=== PATIENT | female | born 1985 | race Caucasian/White ===

== ENCOUNTER 2020-11-13 17:54 | Inpatient (IN) | payer MEDICAID ==
[~2020-11-13] VITALS: Ht 160 cm; Wt 88.0 kg
[2020-11-14] MEDS ORDERED: ACETAMINOPHEN 325 MG TABLET PO PRN (18:45)
[2020-11-14 18:59] VITALS: BP 141/91
[2020-11-14] MEDS ORDERED: MINERAL OIL 133 ML ENEMA PR PRN (19:00)
[2020-11-14] MEDS ORDERED: ONDANSETRON HCL 4 MG TABLET PO PRN (19:00)
[2020-11-14] MEDS ORDERED: OxyCODONE HCL/ACETAMINOPHEN 5-325 MG TABLET PO PRN (19:00)
[2020-11-14] MEDS ORDERED: BISACODYL 10 MG RECTAL RECTAL SUPPOSITORY PR PRN (19:00)
[2020-11-14 21:20] VITALS: BP 151/95
[2020-11-14] MEDS: METOPROLOL TARTRATE 50 MG TABLET PO SCH (21:25)
[2020-11-14] MEDS: SENNA 187 MG TABLET PO SCH (21:25)
[2020-11-14] MEDS: DOCUSATE SODIUM 100 MG CAPSULE PO SCH (21:25)
[2020-11-14] MEDS: APIXABAN 5 MG TABLET PO SCH (21:25)
[2020-11-14] MEDS: VENLAFAXINE HCL 37.5 MG TABLET PO SCH (21:26)
[2020-11-14] MEDS: ATORVASTATIN CALCIUM 40 MG TABLET PO SCH (21:26)
[2020-11-14 23:10] VITALS: BP 150/91
[2020-11-14] MEDS: CloNIDine HCL 0.1 MG TABLET PO SCH (23:13)
[2020-11-14] MEDS: HydrALAZINE HCL 50 MG TABLET PO SCH (23:13)
[2020-11-15] VITALS (13 sets, daily range): BP systolic 103–136; BP diastolic 57–87
[2020-11-15] MEDS: CloNIDine HCL 0.1 MG TABLET PO SCH ×4 (08:00→23:27)
[2020-11-15] MEDS: ASPIRIN 81 MG CHEWABLE TABLET PO SCH (08:07)
[2020-11-15] MEDS: AmLODIPine BESYLATE 10 MG TABLET PO SCH (08:07)
[2020-11-15] MEDS: DOCUSATE SODIUM 100 MG CAPSULE PO SCH ×2 (08:08→21:49)
[2020-11-15] MEDS: APIXABAN 5 MG TABLET PO SCH ×2 (08:08→21:46)
[2020-11-15] MEDS: HydrALAZINE HCL 50 MG TABLET PO SCH ×4 (08:10→23:27)
[2020-11-15] MEDS: VENLAFAXINE HCL 37.5 MG TABLET PO SCH ×2 (08:10→21:47)
[2020-11-15] MEDS: METOPROLOL TARTRATE 50 MG TABLET PO SCH ×2 (08:10→21:47)
[2020-11-15 14:11] LABS: BASOPHILS % (AUTO) 0.6 % (0.0-2.0); EOSINOPHILS % (AUTO) 0.9 % (1.0-6.0); HEMATOCRIT 21.2 % (36-46); LYMPHOCYTES # (AUTO) 1.7 K/uL (1.0-4.8); MEAN CORPUSCULAR HEMOGLOBIN 23.4 pg (26.0-34.0); MEAN CORPUSCULAR HGB CONC 31.3 G/dL (31.0-37.0); MEAN CORPUSCULAR VOLUME 75 fL (80-100); MONOCYTES # (AUTO) 0.6 K/uL (0.1-1.0); MONOCYTES % (AUTO) 7.4 % (2.0-9.0); NEUTROPHILS # (AUTO) 5.3 K/uL (1.8-7.7); NEUTROPHILS % (AUTO) 69.1 % (40.0-70.0); PLATELET COUNT (AUTO) 408 K/uL (150-450); RED BLOOD CELL COUNT(AUTO) 2.84 MIL/uL (4.00-5.20); RED CELL DISTRIBUTION WIDTH 18.1 % (11.5-14.5)
[2020-11-15 14:15] LABS: HEMOGLOBIN 6.6 g/dL (12.0-16.0)
[2020-11-15 14:24] LABS: BILIRUBIN,TOTAL 0.7 mg/dL (0.1-1.0); CALCIUM, TOTAL 8.7 mg/dL (8.8-10.5); CREATININE 1.08 mg/dL (0.60-1.30); POTASSIUM 4.7 mmol/L (3.5-5.1); TOTAL PROTEIN, SERUM 6.1 g/dL (6.4-8.2)
[2020-11-15] MEDS ORDERED: SODIUM CHLORIDE 0.9% 100 ML ONE (17:54)
[2020-11-15] MEDS: SENNA 187 MG TABLET PO SCH (21:46)
[2020-11-15] MEDS: ATORVASTATIN CALCIUM 40 MG TABLET PO SCH (21:47)
[2020-11-15] MEDS: 0.9% SODIUM CHLORIDE 10 ML SYRINGE IVP SCH (23:27)
[2020-11-16 00:11] VITALS: BP 133/88
[2020-11-16] MEDS: ONDANSETRON HCL 4 MG TABLET PO SCH (06:08)
[2020-11-16] MEDS: HydrALAZINE HCL 50 MG TABLET PO SCH ×4 (08:00→23:34)
[2020-11-16 08:10] VITALS: BP 129/93
[2020-11-16] MEDS: 0.9% SODIUM CHLORIDE 10 ML SYRINGE IVP SCH ×3 (08:24→23:34)
[2020-11-16] MEDS: ASPIRIN 81 MG CHEWABLE TABLET PO SCH (08:25)
[2020-11-16] MEDS: VENLAFAXINE HCL 37.5 MG TABLET PO SCH ×2 (08:26→20:43)
[2020-11-16] MEDS: DOCUSATE SODIUM 100 MG CAPSULE PO SCH ×2 (08:26→20:43)
[2020-11-16] MEDS: APIXABAN 5 MG TABLET PO SCH ×2 (08:26→20:43)
[2020-11-16] MEDS: AmLODIPine BESYLATE 10 MG TABLET PO SCH (08:36)
[2020-11-16] MEDS: CloNIDine HCL 0.1 MG TABLET PO SCH ×3 (08:36→23:34)
[2020-11-16 08:48] LABS: HEMATOCRIT 25.1 % (36-46); HEMOGLOBIN 8.2 g/dL (12.0-16.0)
[2020-11-16] MEDS: METOPROLOL TARTRATE 50 MG TABLET PO SCH ×2 (09:00→20:43)
[2020-11-16 10:10] VITALS: BP 102/60
[2020-11-16 15:18] LABS: APPEARANCE,URINE CLOUDY (CLEAR); BILIRUBIN,URINE NEGATIVE (NEGATIVE); GLUCOSE, URINE (UA) NEGATIVE (NEGATIVE); KETONES,URINE NEGATIVE (NEGATIVE); LEUKOCYTE ESTERASE ,URINE NEGATIVE (NEGATIVE); NITRATE,URINE NEGATIVE (NEGATIVE); OCCULT BLOOD,URINE NEGATIVE (NEGATIVE); PROTEIN,URINE NEGATIVE (NEGATIVE); UROBILINOGEN,URINE 0.2 mg/dL (<=1.0)
[2020-11-16 16:11] LABS: BACTERIA,URINE Many /HPF (None Seen); RBC,URINE None Seen /HPF (0-2); SQUAMOUS EPITHELIAL CELL,UR Few /LPF (None Seen)
[2020-11-16 16:20] VITALS: BP 113/73
[2020-11-16 18:10] VITALS: BP 116/77
[2020-11-16 20:30] VITALS: BP 117/72
[2020-11-16] MEDS: SENNA 187 MG TABLET PO SCH (20:43)
[2020-11-16] MEDS: ATORVASTATIN CALCIUM 40 MG TABLET PO SCH (20:43)
[2020-11-16] MEDS: COLD CREAM, SKIN EMOLLIENT 170 GM JAR TP SCH (20:44)
[2020-11-16] MEDS ORDERED: MAGNESIUM HYDROXIDE SUSPENSION 30 ML UDCUP PO PRN (21:15)
[2020-11-17 00:09] VITALS: BP 114/81
[2020-11-17] MEDS: ONDANSETRON HCL 4 MG TABLET PO SCH (05:49)
[2020-11-17] MEDS: MAGNESIUM HYDROXIDE SUSPENSION 30 ML UDCUP PO PRN (05:49)
[2020-11-17] MEDS: DOCUSATE SODIUM 283 MG/5 ML MINI-ENEMA PR SCH (05:49)
[2020-11-17 07:23] VITALS: BP 116/76
[2020-11-17] MEDS: 0.9% SODIUM CHLORIDE 10 ML SYRINGE IVP SCH ×3 (07:41→23:22)
[2020-11-17] MEDS: APIXABAN 5 MG TABLET PO SCH ×2 (07:42→20:39)
[2020-11-17] MEDS: ASPIRIN 81 MG CHEWABLE TABLET PO SCH (07:42)
[2020-11-17] MEDS: HydrALAZINE HCL 50 MG TABLET PO SCH ×3 (07:42→23:21)
[2020-11-17] MEDS: CloNIDine HCL 0.1 MG TABLET PO SCH ×3 (07:43→23:21)
[2020-11-17] MEDS: AmLODIPine BESYLATE 10 MG TABLET PO SCH (07:43)
[2020-11-17] MEDS: VENLAFAXINE HCL 37.5 MG TABLET PO SCH ×2 (07:43→20:39)
[2020-11-17] MEDS: DOCUSATE SODIUM 100 MG CAPSULE PO SCH ×2 (07:43→20:39)
[2020-11-17] MEDS: METOPROLOL TARTRATE 50 MG TABLET PO SCH ×2 (08:00→20:40)
[2020-11-17 09:22] VITALS: BP 99/67
[2020-11-17] MEDS: FERROUS GLUCONATE 324 MG TABLET PO SCH ×2 (09:29→16:27)
[2020-11-17 10:34] LABS: % IRON SATURATION 4.7 % (22-44)
[2020-11-17 16:23] VITALS: BP 129/86
[2020-11-17 20:00] VITALS: BP 102/60
[2020-11-17] MEDS: ATORVASTATIN CALCIUM 40 MG TABLET PO SCH (20:39)
[2020-11-17] MEDS: SENNA 187 MG TABLET PO SCH (20:39)
[2020-11-17] MEDS: COLD CREAM, SKIN EMOLLIENT 170 GM JAR TP SCH (21:11)
[2020-11-17 23:35] VITALS: BP 149/79
[2020-11-18] MEDS: ONDANSETRON HCL 4 MG TABLET PO SCH (05:39)
[2020-11-18] MEDS: DOCUSATE SODIUM 283 MG/5 ML MINI-ENEMA PR SCH (05:39)
[2020-11-18 08:05] VITALS: BP 135/74
[2020-11-18] MEDS: DOCUSATE SODIUM 100 MG CAPSULE PO SCH ×2 (08:16→20:31)
[2020-11-18] MEDS: AmLODIPine BESYLATE 10 MG TABLET PO SCH (08:16)
[2020-11-18] MEDS: CloNIDine HCL 0.1 MG TABLET PO SCH ×2 (08:16→15:57)
[2020-11-18] MEDS: FERROUS GLUCONATE 324 MG TABLET PO SCH (08:16)
[2020-11-18] MEDS: ASPIRIN 81 MG CHEWABLE TABLET PO SCH (08:16)
[2020-11-18] MEDS: APIXABAN 5 MG TABLET PO SCH ×2 (08:16→20:31)
[2020-11-18] MEDS: VENLAFAXINE HCL 37.5 MG TABLET PO SCH ×2 (08:17→20:37)
[2020-11-18] MEDS: 0.9% SODIUM CHLORIDE 10 ML SYRINGE IVP SCH ×3 (08:17→23:08)
[2020-11-18] MEDS: HydrALAZINE HCL 50 MG TABLET PO SCH ×2 (08:17→15:57)
[2020-11-18] MEDS: METOPROLOL TARTRATE 50 MG TABLET PO SCH ×2 (08:17→20:31)
[2020-11-18] MEDS: EPOETIN ALFA 10,000 UNITS/ML VIAL SQ SCH (10:21)
[2020-11-18] MEDS ORDERED: SOD FERRIC GLUC COMPLX/SUCROSE 125 MG in SODIUM CHLORIDE 0.9% 100 ML IV SCH (12:15)
[2020-11-18] MEDS ORDERED: SODIUM CHLORIDE 0.9% 100 ML ONE (13:23)
[2020-11-18 15:46] VITALS: BP 124/79
[2020-11-18 20:29] VITALS: BP 113/70
[2020-11-18] MEDS: ATORVASTATIN CALCIUM 40 MG TABLET PO SCH (20:30)
[2020-11-18] MEDS: SENNA 187 MG TABLET PO SCH (20:31)
[2020-11-18] MEDS: COLD CREAM, SKIN EMOLLIENT 170 GM JAR TP SCH (20:31)
[2020-11-19] VITALS: BP 121/68
[2020-11-19] MEDS: CloNIDine HCL 0.1 MG TABLET PO SCH ×4 (00:03→23:13)
[2020-11-19] MEDS: HydrALAZINE HCL 50 MG TABLET PO SCH ×4 (00:03→23:13)
[2020-11-19] MEDS: DOCUSATE SODIUM 283 MG/5 ML MINI-ENEMA PR SCH (04:58)
[2020-11-19] MEDS: ONDANSETRON HCL 4 MG TABLET PO SCH (05:51)
[2020-11-19 06:39] LABS: ANION GAP 10 mmol/L (8-16); CARBON DIOXIDE 26 mmol/L (22-29); CHLORIDE 102 mmol/L (98-107); CREATININE 0.95 mg/dL (0.60-1.30); GLOMERULAR FILTR. RATE CALC > 60 mL/min (>60); GLUCOSE,RANDOM 102 mg/dL (70-110); POTASSIUM 3.8 mmol/L (3.5-5.1); SODIUM SERUM 138 mmol/L (136-145); UREA NITROGEN, BLOOD 12 mg/dL (7-18)
[2020-11-19] MEDS: 0.9% SODIUM CHLORIDE 10 ML SYRINGE IVP SCH ×3 (08:17→23:03)
[2020-11-19] MEDS: DOCUSATE SODIUM 100 MG CAPSULE PO SCH ×2 (08:18→20:32)
[2020-11-19] MEDS: ASPIRIN 81 MG CHEWABLE TABLET PO SCH (08:18)
[2020-11-19] MEDS: AmLODIPine BESYLATE 10 MG TABLET PO SCH (08:18)
[2020-11-19] MEDS: METOPROLOL TARTRATE 50 MG TABLET PO SCH ×2 (08:18→20:32)
[2020-11-19] MEDS: APIXABAN 5 MG TABLET PO SCH ×2 (08:18→20:32)
[2020-11-19] MEDS: VENLAFAXINE HCL 37.5 MG TABLET PO SCH ×2 (08:19→20:32)
[2020-11-19 09:48] VITALS: BP 123/69
[2020-11-19] MEDS: CIPROFLOXACIN HCL 500 MG TABLET PO SCH ×2 (15:45→20:32)
[2020-11-19] MEDS: SOD FERRIC GLUC COMPLX/SUCROSE 125 MG in SODIUM CHLORIDE 0.9% 100 ML IV SCH (17:02)
[2020-11-19 19:17] VITALS: BP 123/60
[2020-11-19] MEDS: SENNA 187 MG TABLET PO SCH (20:32)
[2020-11-19] MEDS: ATORVASTATIN CALCIUM 40 MG TABLET PO SCH (20:32)
[2020-11-19] MEDS: COLD CREAM, SKIN EMOLLIENT 170 GM JAR TP SCH (20:33)
[2020-11-20] VITALS: BP 126/76
[2020-11-20] MEDS: DOCUSATE SODIUM 283 MG/5 ML MINI-ENEMA PR SCH (05:14)
[2020-11-20] MEDS: ONDANSETRON HCL 4 MG TABLET PO SCH (05:24)
[2020-11-20 07:30] VITALS: BP 118/73
[2020-11-20] MEDS: 0.9% SODIUM CHLORIDE 10 ML SYRINGE IVP SCH ×3 (07:39→23:13)
[2020-11-20] MEDS: CloNIDine HCL 0.1 MG TABLET PO SCH ×4 (07:40→23:13)
[2020-11-20] MEDS: APIXABAN 5 MG TABLET PO SCH ×2 (07:40→21:12)
[2020-11-20] MEDS: ASPIRIN 81 MG CHEWABLE TABLET PO SCH (07:40)
[2020-11-20] MEDS: DOCUSATE SODIUM 100 MG CAPSULE PO SCH ×2 (07:40→21:12)
[2020-11-20] MEDS: HydrALAZINE HCL 50 MG TABLET PO SCH ×3 (07:40→23:13)
[2020-11-20] MEDS: VENLAFAXINE HCL 37.5 MG TABLET PO SCH ×2 (07:41→21:12)
[2020-11-20] MEDS: AmLODIPine BESYLATE 10 MG TABLET PO SCH (07:41)
[2020-11-20] MEDS: CIPROFLOXACIN HCL 500 MG TABLET PO SCH ×2 (07:41→21:13)
[2020-11-20] MEDS: MODAFINIL 100 MG TABLET PO SCH (07:41)
[2020-11-20] MEDS: EPOETIN ALFA 10,000 UNITS/ML VIAL SQ SCH (07:42)
[2020-11-20 09:40] VITALS: BP 110/63
[2020-11-20] MEDS: METOPROLOL TARTRATE 50 MG TABLET PO SCH ×2 (09:47→21:12)
[2020-11-20] MEDS: SOD FERRIC GLUC COMPLX/SUCROSE 125 MG in SODIUM CHLORIDE 0.9% 100 ML IV SCH (16:00)
[2020-11-20 16:33] VITALS: BP 126/79
[2020-11-20 21:00] VITALS: BP 133/95
[2020-11-20] MEDS: SENNA 187 MG TABLET PO SCH (21:12)
[2020-11-20] MEDS: ATORVASTATIN CALCIUM 40 MG TABLET PO SCH (21:12)
[2020-11-20] MEDS: COLD CREAM, SKIN EMOLLIENT 170 GM JAR TP SCH (21:33)
[2020-11-21] VITALS: BP 128/79
[2020-11-21] MEDS: DOCUSATE SODIUM 283 MG/5 ML MINI-ENEMA PR SCH (04:56)
[2020-11-21] MEDS: ONDANSETRON HCL 4 MG TABLET PO SCH (04:57)
[2020-11-21 07:16] VITALS: BP 121/78
[2020-11-21 07:27] LABS: BASOPHILS % (AUTO) 0.4 % (0.0-2.0); EOSINOPHILS % (AUTO) 0.7 % (1.0-6.0); HEMATOCRIT 25.4 % (36-46); HEMOGLOBIN 8.3 g/dL (12.0-16.0); LYMPHOCYTES # (AUTO) 1.3 K/uL (1.0-4.8); LYMPHOCYTES % (AUTO) 16.3 % (22.0-44.0); MEAN CORPUSCULAR HEMOGLOBIN 24.9 pg (26.0-34.0); MEAN CORPUSCULAR HGB CONC 32.6 G/dL (31.0-37.0); MEAN CORPUSCULAR VOLUME 77 fL (80-100); MONOCYTES # (AUTO) 0.6 K/uL (0.1-1.0); MONOCYTES % (AUTO) 7.7 % (2.0-9.0); NEUTROPHILS % (AUTO) 74.9 % (40.0-70.0); PLATELET COUNT (AUTO) 367 K/uL (150-450); RED BLOOD CELL COUNT(AUTO) 3.32 MIL/uL (4.00-5.20); RED CELL DISTRIBUTION WIDTH 20.2 % (11.5-14.5)
[2020-11-21 07:45] LABS: ANION GAP 8 mmol/L (8-16); CALCIUM, TOTAL 8.9 mg/dL (8.8-10.5); CARBON DIOXIDE 27 mmol/L (22-29); CHLORIDE 101 mmol/L (98-107); CREATININE 0.99 mg/dL (0.60-1.30); GLOMERULAR FILTR. RATE CALC > 60 mL/min (>60); GLUCOSE,RANDOM 106 mg/dL (70-110); POTASSIUM 3.9 mmol/L (3.5-5.1); SODIUM SERUM 136 mmol/L (136-145); UREA NITROGEN, BLOOD 10 mg/dL (7-18)
[2020-11-21] MEDS: ASPIRIN 81 MG CHEWABLE TABLET PO SCH (08:13)
[2020-11-21] MEDS: 0.9% SODIUM CHLORIDE 10 ML SYRINGE IVP SCH ×3 (08:13→23:41)
[2020-11-21] MEDS: AmLODIPine BESYLATE 10 MG TABLET PO SCH (08:13)
[2020-11-21] MEDS: CIPROFLOXACIN HCL 500 MG TABLET PO SCH ×2 (08:13→20:39)
[2020-11-21] MEDS: HydrALAZINE HCL 50 MG TABLET PO SCH ×3 (08:13→23:38)
[2020-11-21] MEDS: CloNIDine HCL 0.1 MG TABLET PO SCH ×3 (08:14→23:38)
[2020-11-21] MEDS: APIXABAN 5 MG TABLET PO SCH ×2 (08:14→20:30)
[2020-11-21] MEDS: MODAFINIL 100 MG TABLET PO SCH (08:14)
[2020-11-21] MEDS: DOCUSATE SODIUM 100 MG CAPSULE PO SCH ×2 (08:23→20:30)
[2020-11-21 08:53] VITALS: BP 107/67
[2020-11-21] MEDS: VENLAFAXINE HCL 37.5 MG TABLET PO SCH ×2 (08:56→20:31)
[2020-11-21] MEDS: METOPROLOL TARTRATE 50 MG TABLET PO SCH ×2 (08:57→20:30)
[2020-11-21] MEDS: SOD FERRIC GLUC COMPLX/SUCROSE 125 MG in SODIUM CHLORIDE 0.9% 100 ML IV SCH (16:12)
[2020-11-21 16:18] VITALS: BP 122/80
[2020-11-21 20:28] VITALS: BP 117/75
[2020-11-21] MEDS: ATORVASTATIN CALCIUM 40 MG TABLET PO SCH (20:30)
[2020-11-21] MEDS: SENNA 187 MG TABLET PO SCH (20:30)
[2020-11-21] MEDS: COLD CREAM, SKIN EMOLLIENT 170 GM JAR TP SCH (20:30)
[2020-11-22] VITALS: BP 121/74
[2020-11-22] MEDS: DOCUSATE SODIUM 283 MG/5 ML MINI-ENEMA PR SCH (05:07)
[2020-11-22] MEDS: ONDANSETRON HCL 4 MG TABLET PO SCH (06:01)
[2020-11-22 07:58] VITALS: BP 125/83
[2020-11-22] MEDS: CIPROFLOXACIN HCL 500 MG TABLET PO SCH ×2 (08:42→21:06)
[2020-11-22] MEDS: 0.9% SODIUM CHLORIDE 10 ML SYRINGE IVP SCH ×3 (08:42→23:11)
[2020-11-22] MEDS: DOCUSATE SODIUM 100 MG CAPSULE PO SCH ×2 (08:42→21:06)
[2020-11-22] MEDS: ASPIRIN 81 MG CHEWABLE TABLET PO SCH (08:43)
[2020-11-22] MEDS: APIXABAN 5 MG TABLET PO SCH ×2 (08:43→21:06)
[2020-11-22] MEDS: VENLAFAXINE HCL 37.5 MG TABLET PO SCH ×2 (08:43→21:06)
[2020-11-22] MEDS: CloNIDine HCL 0.1 MG TABLET PO SCH ×3 (08:44→23:16)
[2020-11-22] MEDS: AmLODIPine BESYLATE 10 MG TABLET PO SCH (08:44)
[2020-11-22] MEDS: MODAFINIL 100 MG TABLET PO SCH (08:49)
[2020-11-22] MEDS: EPOETIN ALFA 10,000 UNITS/ML VIAL SQ SCH (08:51)
[2020-11-22] MEDS: METOPROLOL TARTRATE 50 MG TABLET PO SCH ×2 (09:00→21:06)
[2020-11-22 11:56] VITALS: BP 113/82
[2020-11-22] MEDS: HydrALAZINE HCL 50 MG TABLET PO SCH ×3 (12:02→23:13)
[2020-11-22 17:22] VITALS: BP 106/66
[2020-11-22] MEDS: ATORVASTATIN CALCIUM 40 MG TABLET PO SCH (21:06)
[2020-11-22] MEDS: SENNA 187 MG TABLET PO SCH (21:06)
[2020-11-22] MEDS: COLD CREAM, SKIN EMOLLIENT 170 GM JAR TP SCH (21:19)
[2020-11-22] MEDS ORDERED: SODIUM CHLORIDE 0.9% 250 ML IV ONE (21:44)
[2020-11-22] MEDS: SOD FERRIC GLUC COMPLX/SUCROSE 125 MG in SODIUM CHLORIDE 0.9% 100 ML IV SCH (21:55)
[2020-11-23] VITALS: BP 129/80
[2020-11-23] MEDS: DOCUSATE SODIUM 283 MG/5 ML MINI-ENEMA PR SCH (05:07)
[2020-11-23] MEDS: ONDANSETRON HCL 4 MG TABLET PO SCH (05:16)
[2020-11-23] MEDS ORDERED: HYDR50TA36 PO (06:52)
[2020-11-23] MEDS ORDERED: APIX5TAB PO (07:02)
[2020-11-23] MEDS ORDERED: ASPI-1450 PO (07:02)
[2020-11-23] MEDS ORDERED: DOCU-275 PO (07:02)
[2020-11-23] MEDS ORDERED: CLON0.1T2 PO (07:02)
[2020-11-23] MEDS ORDERED: ATOR40TA28 PO (07:02)
[2020-11-23] MEDS ORDERED: VENL-193 PO (07:02)
[2020-11-23] MEDS ORDERED: AMLO-258 PO (07:02)
[2020-11-23] MEDS ORDERED: METO50 PO (07:02)
[2020-11-23] MEDS ORDERED: SENN8.6T90 PO (07:02)
[2020-11-23] MEDS ORDERED: ONDA-104 PO (07:02)
[2020-11-23 08:01] VITALS: BP 121/70
[2020-11-23] MEDS: 0.9% SODIUM CHLORIDE 10 ML SYRINGE IVP SCH ×3 (08:53→23:38)
[2020-11-23] MEDS: ASPIRIN 81 MG CHEWABLE TABLET PO SCH (08:53)
[2020-11-23] MEDS: CIPROFLOXACIN HCL 500 MG TABLET PO SCH ×2 (08:53→21:06)
[2020-11-23] MEDS: DOCUSATE SODIUM 100 MG CAPSULE PO SCH ×2 (08:53→21:06)
[2020-11-23] MEDS: MODAFINIL 100 MG TABLET PO SCH (08:54)
[2020-11-23] MEDS: CloNIDine HCL 0.1 MG TABLET PO SCH ×4 (08:54→23:45)
[2020-11-23] MEDS: AmLODIPine BESYLATE 10 MG TABLET PO SCH (08:54)
[2020-11-23] MEDS: APIXABAN 5 MG TABLET PO SCH ×2 (08:54→21:06)
[2020-11-23] MEDS: VENLAFAXINE HCL 37.5 MG TABLET PO SCH ×2 (08:55→21:07)
[2020-11-23] MEDS: METOPROLOL TARTRATE 50 MG TABLET PO SCH ×2 (09:00→21:06)
[2020-11-23] MEDS: HydrALAZINE HCL 50 MG TABLET PO SCH ×3 (11:36→23:45)
[2020-11-23 11:37] VITALS: BP 142/90
[2020-11-23 16:24] VITALS: BP 110/60
[2020-11-23] MEDS: SOD FERRIC GLUC COMPLX/SUCROSE 125 MG in SODIUM CHLORIDE 0.9% 100 ML IV SCH (17:25)
[2020-11-23] MEDS: ATORVASTATIN CALCIUM 40 MG TABLET PO SCH (21:07)
[2020-11-23] MEDS: SENNA 187 MG TABLET PO SCH (21:07)
[2020-11-23] MEDS: COLD CREAM, SKIN EMOLLIENT 170 GM JAR TP SCH (21:08)
[2020-11-24] VITALS: BP 124/76
[2020-11-24] MEDS: ONDANSETRON HCL 4 MG TABLET PO SCH (05:19)
[2020-11-24] MEDS: DOCUSATE SODIUM 283 MG/5 ML MINI-ENEMA PR SCH (05:19)
[2020-11-24 08:10] VITALS: BP 127/77
[2020-11-24] MEDS: CloNIDine HCL 0.1 MG TABLET PO SCH ×3 (08:52→23:30)
[2020-11-24] MEDS: EPOETIN ALFA 10,000 UNITS/ML VIAL SQ SCH (08:52)
[2020-11-24] MEDS: ASPIRIN 81 MG CHEWABLE TABLET PO SCH (08:52)
[2020-11-24] MEDS: AmLODIPine BESYLATE 10 MG TABLET PO SCH (08:53)
[2020-11-24] MEDS: APIXABAN 5 MG TABLET PO SCH ×2 (08:53→20:11)
[2020-11-24] MEDS: METOPROLOL TARTRATE 50 MG TABLET PO SCH ×2 (08:53→20:12)
[2020-11-24] MEDS: CIPROFLOXACIN HCL 500 MG TABLET PO SCH ×2 (08:53→20:12)
[2020-11-24] MEDS: MODAFINIL 100 MG TABLET PO SCH (08:53)
[2020-11-24] MEDS: DOCUSATE SODIUM 100 MG CAPSULE PO SCH ×2 (08:53→20:11)
[2020-11-24] MEDS: HydrALAZINE HCL 50 MG TABLET PO SCH ×3 (08:54→23:30)
[2020-11-24] MEDS: 0.9% SODIUM CHLORIDE 10 ML SYRINGE IVP SCH ×3 (09:02→23:30)
[2020-11-24] MEDS: VENLAFAXINE HCL 37.5 MG TABLET PO SCH ×2 (09:05→20:12)
[2020-11-24 16:21] VITALS: BP 121/80
[2020-11-24] MEDS: SOD FERRIC GLUC COMPLX/SUCROSE 125 MG in SODIUM CHLORIDE 0.9% 100 ML IV SCH (16:24)
[2020-11-24 16:47] VITALS: BP 121/80
[2020-11-24 20:09] VITALS: BP 115/74
[2020-11-24] MEDS: SENNA 187 MG TABLET PO SCH (20:11)
[2020-11-24] MEDS: ATORVASTATIN CALCIUM 40 MG TABLET PO SCH (20:12)
[2020-11-24] MEDS: COLD CREAM, SKIN EMOLLIENT 170 GM JAR TP SCH (20:31)
[2020-11-25 00:04] VITALS: BP 115/69
[2020-11-25] MEDS: ONDANSETRON HCL 4 MG TABLET PO SCH (05:33)
[2020-11-25] MEDS: DOCUSATE SODIUM 283 MG/5 ML MINI-ENEMA PR SCH (05:33)
[2020-11-25 08:05] VITALS: BP 122/79
[2020-11-25] MEDS: HydrALAZINE HCL 50 MG TABLET PO SCH ×3 (08:25→23:36)
[2020-11-25] MEDS: ASPIRIN 81 MG CHEWABLE TABLET PO SCH (08:25)
[2020-11-25] MEDS: APIXABAN 5 MG TABLET PO SCH ×2 (08:26→20:24)
[2020-11-25] MEDS: DOCUSATE SODIUM 100 MG CAPSULE PO SCH ×2 (08:26→20:25)
[2020-11-25] MEDS: VENLAFAXINE HCL 37.5 MG TABLET PO SCH ×2 (08:26→20:24)
[2020-11-25] MEDS: AmLODIPine BESYLATE 10 MG TABLET PO SCH (08:26)
[2020-11-25] MEDS: CloNIDine HCL 0.1 MG TABLET PO SCH ×3 (08:26→23:36)
[2020-11-25] MEDS: MODAFINIL 100 MG TABLET PO SCH (08:26)
[2020-11-25] MEDS: 0.9% SODIUM CHLORIDE 10 ML SYRINGE IVP SCH ×3 (08:30→23:36)
[2020-11-25] MEDS: METOPROLOL TARTRATE 50 MG TABLET PO SCH (09:00)
[2020-11-25 11:55] VITALS: BP 111/72
[2020-11-25 15:30] VITALS: BP 126/71
[2020-11-25] MEDS: DICLOFENAC SODIUM 1% 100 GM GEL [4GM] TP SCH ×2 (15:33→20:22)
[2020-11-25] MEDS: SOD FERRIC GLUC COMPLX/SUCROSE 125 MG in SODIUM CHLORIDE 0.9% 100 ML IV SCH (16:11)
[2020-11-25 20:13] VITALS: BP 114/77
[2020-11-25] MEDS: COLD CREAM, SKIN EMOLLIENT 170 GM JAR TP SCH (20:22)
[2020-11-25] MEDS: SENNA 187 MG TABLET PO SCH (20:24)
[2020-11-25] MEDS: METOPROLOL SUCCINATE 25 MG ER TABLET PO SCH (20:24)
[2020-11-25] MEDS: ATORVASTATIN CALCIUM 40 MG TABLET PO SCH (20:24)
[2020-11-26 00:07] VITALS: BP 134/76
[2020-11-26] MEDS: DOCUSATE SODIUM 283 MG/5 ML MINI-ENEMA PR SCH (05:30)
[2020-11-26] MEDS: ONDANSETRON HCL 4 MG TABLET PO SCH (05:30)
[2020-11-26 07:12] VITALS: BP 135/77
[2020-11-26] MEDS: DOCUSATE SODIUM 100 MG CAPSULE PO SCH (07:54)
[2020-11-26] MEDS: 0.9% SODIUM CHLORIDE 10 ML SYRINGE IVP SCH ×2 (07:54→15:44)
[2020-11-26] MEDS: DICLOFENAC SODIUM 1% 100 GM GEL [4GM] TP SCH ×3 (07:54→20:57)
[2020-11-26] MEDS: EPOETIN ALFA 10,000 UNITS/ML VIAL SQ SCH (07:54)
[2020-11-26] MEDS: APIXABAN 5 MG TABLET PO SCH ×2 (07:55→20:56)
[2020-11-26] MEDS: METOPROLOL SUCCINATE 25 MG ER TABLET PO SCH ×2 (07:55→20:56)
[2020-11-26] MEDS: ASPIRIN 81 MG CHEWABLE TABLET PO SCH (07:55)
[2020-11-26] MEDS: VENLAFAXINE HCL 37.5 MG TABLET PO SCH ×2 (07:55→20:56)
[2020-11-26] MEDS: HydrALAZINE HCL 50 MG TABLET PO SCH ×2 (07:55→15:44)
[2020-11-26] MEDS: MODAFINIL 100 MG TABLET PO SCH (07:55)
[2020-11-26] MEDS: CloNIDine HCL 0.1 MG TABLET PO SCH ×2 (07:55→15:45)
[2020-11-26] MEDS: AmLODIPine BESYLATE 10 MG TABLET PO SCH (07:55)
[2020-11-26] MEDS ORDERED: SODIUM PHOS/SODIUM BIPHOS 133 ML ENEMA PR ONE (11:45)
[2020-11-26] MEDS ORDERED: SODIUM CHLORIDE 0.9% 250 ML IV ONE (15:53)
[2020-11-26 16:46] VITALS: BP 139/77
[2020-11-26] MEDS: SOD FERRIC GLUC COMPLX/SUCROSE 125 MG in SODIUM CHLORIDE 0.9% 100 ML IV SCH (17:05)
[2020-11-26] MEDS: MAGNESIUM HYDROXIDE SUSPENSION 30 ML UDCUP PO PRN (17:05)
[2020-11-26] MEDS: ATORVASTATIN CALCIUM 40 MG TABLET PO SCH (20:56)
[2020-11-26] MEDS: DOCUSATE SODIUM 250 MG CAPSULE PO SCH (20:56)
[2020-11-26] MEDS: SENNA 187 MG TABLET PO SCH (20:56)
[2020-11-26] MEDS: COLD CREAM, SKIN EMOLLIENT 170 GM JAR TP SCH (20:57)
[2020-11-27] VITALS: BP 139/81
[2020-11-27] MEDS: HydrALAZINE HCL 50 MG TABLET PO SCH ×3 (00:04→15:58)
[2020-11-27] MEDS: 0.9% SODIUM CHLORIDE 10 ML SYRINGE IVP SCH ×3 (00:05→17:55)
[2020-11-27] MEDS: CloNIDine HCL 0.1 MG TABLET PO SCH ×3 (00:05→15:58)
[2020-11-27] MEDS: DOCUSATE SODIUM 283 MG/5 ML MINI-ENEMA PR SCH (05:17)
[2020-11-27] MEDS: ONDANSETRON HCL 4 MG TABLET PO SCH (05:17)
[2020-11-27 07:24] VITALS: BP 144/84
[2020-11-27] MEDS: DOCUSATE SODIUM 250 MG CAPSULE PO SCH ×2 (08:21→21:07)
[2020-11-27] MEDS: APIXABAN 5 MG TABLET PO SCH ×2 (08:21→21:07)
[2020-11-27] MEDS: MODAFINIL 100 MG TABLET PO SCH (08:21)
[2020-11-27] MEDS: ASPIRIN 81 MG CHEWABLE TABLET PO SCH (08:21)
[2020-11-27] MEDS: POLYETHYLENE GLYCOL 3350 17 GM PACKET PO SCH (08:21)
[2020-11-27] MEDS: METOPROLOL SUCCINATE 25 MG ER TABLET PO SCH ×2 (08:22→21:07)
[2020-11-27] MEDS: DICLOFENAC SODIUM 1% 100 GM GEL [4GM] TP SCH ×3 (08:22→21:08)
[2020-11-27] MEDS: AmLODIPine BESYLATE 10 MG TABLET PO SCH (08:22)
[2020-11-27] MEDS: VENLAFAXINE HCL 37.5 MG TABLET PO SCH ×2 (08:22→21:07)
[2020-11-27 15:37] VITALS: BP 122/77
[2020-11-27] MEDS: MAGNESIUM HYDROXIDE SUSPENSION 30 ML UDCUP PO PRN (15:58)
[2020-11-27 20:50] VITALS: BP 116/64
[2020-11-27] MEDS: ATORVASTATIN CALCIUM 40 MG TABLET PO SCH (21:07)
[2020-11-27] MEDS: SENNA 187 MG TABLET PO SCH (21:07)
[2020-11-27] MEDS: COLD CREAM, SKIN EMOLLIENT 170 GM JAR TP SCH (21:08)
[2020-11-28] VITALS: BP 121/77
[2020-11-28] MEDS: CloNIDine HCL 0.1 MG TABLET PO SCH ×4 (00:22→23:10)
[2020-11-28] MEDS: HydrALAZINE HCL 50 MG TABLET PO SCH ×4 (00:24→23:10)
[2020-11-28] MEDS: 0.9% SODIUM CHLORIDE 10 ML SYRINGE IVP SCH ×4 (00:24→23:11)
[2020-11-28] MEDS: DOCUSATE SODIUM 283 MG/5 ML MINI-ENEMA PR SCH (05:14)
[2020-11-28] MEDS: ONDANSETRON HCL 4 MG TABLET PO SCH (05:14)
[2020-11-28 07:00] VITALS: BP 152/92
[2020-11-28] MEDS: POLYETHYLENE GLYCOL 3350 17 GM PACKET PO SCH (08:38)
[2020-11-28] MEDS: VENLAFAXINE HCL 37.5 MG TABLET PO SCH ×2 (08:39→20:46)
[2020-11-28] MEDS: AmLODIPine BESYLATE 10 MG TABLET PO SCH (08:39)
[2020-11-28] MEDS: ASPIRIN 81 MG CHEWABLE TABLET PO SCH (08:39)
[2020-11-28] MEDS: MODAFINIL 100 MG TABLET PO SCH (08:39)
[2020-11-28] MEDS: DOCUSATE SODIUM 250 MG CAPSULE PO SCH ×2 (08:39→20:46)
[2020-11-28] MEDS: APIXABAN 5 MG TABLET PO SCH ×2 (08:39→20:46)
[2020-11-28] MEDS: DICLOFENAC SODIUM 1% 100 GM GEL [4GM] TP SCH ×3 (08:41→20:47)
[2020-11-28] MEDS: EPOETIN ALFA 10,000 UNITS/ML VIAL SQ SCH (08:43)
[2020-11-28 15:58] VITALS: BP 119/68
[2020-11-28 20:10] VITALS: BP 126/74
[2020-11-28] MEDS: SENNA 187 MG TABLET PO SCH (20:46)
[2020-11-28] MEDS: ATORVASTATIN CALCIUM 40 MG TABLET PO SCH (20:46)
[2020-11-28] MEDS: COLD CREAM, SKIN EMOLLIENT 170 GM JAR TP SCH (20:47)
[2020-11-29 00:12] VITALS: BP 132/69
[2020-11-29] MEDS: DOCUSATE SODIUM 283 MG/5 ML MINI-ENEMA PR SCH (05:37)
[2020-11-29] MEDS: ONDANSETRON HCL 4 MG TABLET PO SCH (05:37)
[2020-11-29] MEDS: 0.9% SODIUM CHLORIDE 10 ML SYRINGE IVP SCH ×3 (08:00→23:29)
[2020-11-29 08:10] VITALS: BP 143/85
[2020-11-29] MEDS: POLYETHYLENE GLYCOL 3350 17 GM PACKET PO SCH (08:38)
[2020-11-29] MEDS: HydrALAZINE HCL 50 MG TABLET PO SCH ×3 (08:39→23:26)
[2020-11-29] MEDS: APIXABAN 5 MG TABLET PO SCH ×2 (08:39→20:03)
[2020-11-29] MEDS: CloNIDine HCL 0.1 MG TABLET PO SCH ×3 (08:39→23:26)
[2020-11-29] MEDS: VENLAFAXINE HCL 37.5 MG TABLET PO SCH ×2 (08:39→20:03)
[2020-11-29] MEDS: ASPIRIN 81 MG CHEWABLE TABLET PO SCH (08:39)
[2020-11-29] MEDS: DOCUSATE SODIUM 250 MG CAPSULE PO SCH ×2 (08:39→20:03)
[2020-11-29] MEDS: MODAFINIL 100 MG TABLET PO SCH (08:39)
[2020-11-29] MEDS: AmLODIPine BESYLATE 10 MG TABLET PO SCH (10:30)
[2020-11-29] MEDS: METOPROLOL SUCCINATE 25 MG ER TABLET PO SCH (10:30)
[2020-11-29] MEDS: DICLOFENAC SODIUM 1% 100 GM GEL [4GM] TP SCH ×3 (10:33→20:03)
[2020-11-29 15:16] VITALS: BP 128/82
[2020-11-29] MEDS ORDERED: DOCUSATE SODIUM 283 MG/5 ML MINI-ENEMA PR PRN (17:15)
[2020-11-29] MEDS: SENNA 187 MG TABLET PO SCH (20:03)
[2020-11-29] MEDS: ATORVASTATIN CALCIUM 40 MG TABLET PO SCH (20:03)
[2020-11-29] MEDS: COLD CREAM, SKIN EMOLLIENT 170 GM JAR TP SCH (20:03)
[2020-11-30] VITALS: BP 134/79
[2020-11-30] MEDS: DOCUSATE SODIUM 283 MG/5 ML MINI-ENEMA PR SCH (05:29)
[2020-11-30] MEDS: ONDANSETRON HCL 4 MG TABLET PO SCH (05:29)
[2020-11-30 07:37] VITALS: BP 139/88
[2020-11-30] MEDS: CloNIDine HCL 0.1 MG TABLET PO SCH ×3 (07:42→22:59)
[2020-11-30] MEDS: HydrALAZINE HCL 50 MG TABLET PO SCH ×3 (07:42→22:59)
[2020-11-30] MEDS: 0.9% SODIUM CHLORIDE 10 ML SYRINGE IVP SCH ×3 (07:43→22:59)
[2020-11-30 08:44] LABS: BASOPHILS % (AUTO) 0.3 % (0.0-2.0); EOSINOPHILS % (AUTO) 1.7 % (1.0-6.0); HEMATOCRIT 29.7 % (36-46); HEMOGLOBIN 9.4 g/dL (12.0-16.0); LYMPHOCYTES # (AUTO) 1.2 K/uL (1.0-4.8); LYMPHOCYTES % (AUTO) 21.4 % (22.0-44.0); MEAN CORPUSCULAR HEMOGLOBIN 25.4 pg (26.0-34.0); MEAN CORPUSCULAR HGB CONC 31.6 G/dL (31.0-37.0); MEAN CORPUSCULAR VOLUME 80 fL (80-100); MONOCYTES # (AUTO) 0.4 K/uL (0.1-1.0); MONOCYTES % (AUTO) 7.8 % (2.0-9.0); NEUTROPHILS # (AUTO) 3.7 K/uL (1.8-7.7); NEUTROPHILS % (AUTO) 68.8 % (40.0-70.0); PLATELET COUNT (AUTO) 318 K/uL (150-450); RED CELL DISTRIBUTION WIDTH 24.8 % (11.5-14.5)
[2020-11-30] MEDS: ASPIRIN 81 MG CHEWABLE TABLET PO SCH (09:03)
[2020-11-30] MEDS: MODAFINIL 100 MG TABLET PO SCH (09:03)
[2020-11-30] MEDS: POLYETHYLENE GLYCOL 3350 17 GM PACKET PO SCH (09:03)
[2020-11-30] MEDS: DOCUSATE SODIUM 250 MG CAPSULE PO SCH ×2 (09:03→20:11)
[2020-11-30] MEDS: APIXABAN 5 MG TABLET PO SCH ×2 (09:03→20:11)
[2020-11-30] MEDS: METOPROLOL SUCCINATE 25 MG ER TABLET PO SCH (09:04)
[2020-11-30] MEDS: AmLODIPine BESYLATE 10 MG TABLET PO SCH (09:04)
[2020-11-30] MEDS: EPOETIN ALFA 10,000 UNITS/ML VIAL SQ SCH (09:05)
[2020-11-30] MEDS: VENLAFAXINE HCL 37.5 MG TABLET PO SCH ×2 (09:08→20:12)
[2020-11-30 09:15] VITALS: BP 118/69
[2020-11-30] MEDS: DICLOFENAC SODIUM 1% 100 GM GEL [4GM] TP SCH ×3 (09:23→20:14)
[2020-11-30 16:25] VITALS: BP 142/75
[2020-11-30] MEDS: SENNA 187 MG TABLET PO SCH (20:11)
[2020-11-30] MEDS: ATORVASTATIN CALCIUM 40 MG TABLET PO SCH (20:11)
[2020-11-30] MEDS: COLD CREAM, SKIN EMOLLIENT 170 GM JAR TP SCH (20:14)
[2020-12-01] VITALS: BP 136/71
[2020-12-01] MEDS: DOCUSATE SODIUM 283 MG/5 ML MINI-ENEMA PR SCH (05:36)
[2020-12-01] MEDS: ONDANSETRON HCL 4 MG TABLET PO SCH (05:36)
[2020-12-01] MEDS: DOCUSATE SODIUM 250 MG CAPSULE PO SCH ×2 (08:27→20:20)
[2020-12-01] MEDS: 0.9% SODIUM CHLORIDE 10 ML SYRINGE IVP SCH (08:27)
[2020-12-01] MEDS: AmLODIPine BESYLATE 10 MG TABLET PO SCH (08:27)
[2020-12-01] MEDS: POLYETHYLENE GLYCOL 3350 17 GM PACKET PO SCH (08:27)
[2020-12-01] MEDS: ASPIRIN 81 MG CHEWABLE TABLET PO SCH (08:28)
[2020-12-01] MEDS: VENLAFAXINE HCL 37.5 MG TABLET PO SCH ×2 (08:28→20:20)
[2020-12-01] MEDS: APIXABAN 5 MG TABLET PO SCH ×2 (08:28→20:20)
[2020-12-01] MEDS: CloNIDine HCL 0.1 MG TABLET PO SCH ×3 (08:28→23:25)
[2020-12-01] MEDS: MODAFINIL 100 MG TABLET PO SCH (08:28)
[2020-12-01] MEDS: HydrALAZINE HCL 50 MG TABLET PO SCH ×3 (08:28→23:25)
[2020-12-01] MEDS: METOPROLOL SUCCINATE 25 MG ER TABLET PO SCH (08:31)
[2020-12-01] MEDS: DICLOFENAC SODIUM 1% 100 GM GEL [4GM] TP SCH ×3 (09:00→20:21)
[2020-12-01 09:11] VITALS: BP 127/78
[2020-12-01] MEDS ORDERED: LACTULOSE 20 GM/30 ML SOLUTION UDCUP PO PRN (10:15)
[2020-12-01 18:01] VITALS: BP 121/70
[2020-12-01] MEDS ORDERED: METO25XL PO (20:09)
[2020-12-01] MEDS ORDERED: DOCU-350 PO (20:09)
[2020-12-01] MEDS ORDERED: MODA100T65 PO (20:13)
[2020-12-01] MEDS ORDERED: POLY17PO47 PO (20:13)
[2020-12-01] MEDS ORDERED: DICL2100G TP (20:16)
[2020-12-01] MEDS: ATORVASTATIN CALCIUM 40 MG TABLET PO SCH (20:20)
[2020-12-01] MEDS: SENNA 187 MG TABLET PO SCH (20:20)
[2020-12-01] MEDS: COLD CREAM, SKIN EMOLLIENT 170 GM JAR TP SCH (20:28)
[2020-12-02] VITALS: BP 141/80
[2020-12-02] MEDS: ONDANSETRON HCL 4 MG TABLET PO SCH (05:59)
[2020-12-02] MEDS: DOCUSATE SODIUM 283 MG/5 ML MINI-ENEMA PR SCH (05:59)
[2020-12-02] MEDS: HydrALAZINE HCL 50 MG TABLET PO SCH (08:42)
[2020-12-02] MEDS: POLYETHYLENE GLYCOL 3350 17 GM PACKET PO SCH (08:42)
[2020-12-02] MEDS: DICLOFENAC SODIUM 1% 100 GM GEL [4GM] TP SCH (08:42)
[2020-12-02] MEDS: METOPROLOL SUCCINATE 25 MG ER TABLET PO SCH (08:42)
[2020-12-02] MEDS: DOCUSATE SODIUM 250 MG CAPSULE PO SCH (08:42)
[2020-12-02] MEDS: ASPIRIN 81 MG CHEWABLE TABLET PO SCH (08:42)
[2020-12-02] MEDS: AmLODIPine BESYLATE 10 MG TABLET PO SCH (08:43)
[2020-12-02] MEDS: CloNIDine HCL 0.1 MG TABLET PO SCH (08:43)
[2020-12-02] MEDS: APIXABAN 5 MG TABLET PO SCH (08:43)
[2020-12-02] MEDS: MODAFINIL 100 MG TABLET PO SCH (08:43)
[2020-12-02] MEDS: VENLAFAXINE HCL 37.5 MG TABLET PO SCH (08:43)
[2020-12-02] MEDS: EPOETIN ALFA 10,000 UNITS/ML VIAL SQ SCH (08:43)
[2020-12-02 09:11] VITALS: BP 145/88
== END 2020-12-02 15:20 | disposition home or self-care (01) | DRG 58 ==
LOC: 2WR 11-14 17:50
PROVIDERS: ADMIT Physical Medicine & Rehabilitation; ATTEND Physical Medicine & Rehabilitation
PROC: 30233N1 Transfusion of Nonautologous Red Blood Cells into Peripheral Vein, Percutaneous Approach (ICD-10-PCS; principal; 2020-11-15)
DX: I69.351 Hemiplegia and hemiparesis following cerebral infarction affecting right dominant side (principal); I63.9 Cerebral infarction, unspecified; E66.01 Morbid (severe) obesity due to excess calories; E87.1 Hypo-osmolality and hyponatremia; R13.10 Dysphagia, unspecified; N31.9 Neuromuscular dysfunction of bladder, unspecified; R47.01 Aphasia; D64.9 Anemia, unspecified; I10 Essential (primary) hypertension; E78.5 Hyperlipidemia, unspecified; B96.20 Unspecified Escherichia coli [E. coli] as the cause of diseases classified elsewhere; D50.9 Iron deficiency anemia, unspecified; R26.9 Unspecified abnormalities of gait and mobility; F32.9 Major depressive disorder, single episode, unspecified; K59.00 Constipation, unspecified; N39.0 Urinary tract infection, site not specified; F43.20 Adjustment disorder, unspecified; G31.84 Mild cognitive impairment of uncertain or unknown etiology; N39.498 Other specified urinary incontinence; Z68.34 Body mass index [BMI] 34.0-34.9, adult; Z79.899 Other long term (current) drug therapy; Z79.01 Long term (current) use of anticoagulants
CPT/HCPCS: 74018; 80048; 80053; 81001; 82271; 83036; 83540; 83550; 83735; 84100; 85014; 85018; 85025; 85045; 86850; 86900; 86901; 86923; 87077; 87081; 87086; 87186; 92507; 92610; 93970; 97112; 97116; 97163; 97167; 97530; 97535; 99366; J0885; J2916; J7050; P9016; Q0162; 36415-L1; 36415-TC